=== PATIENT | male | born 1980 | race Caucasian/White ===

== ENCOUNTER 2017-12-09 10:43 | Observation (INO) ==
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
--- NOTE | 2017-12-09 12:55 | US ---
EXAM: Bilateral carotid artery Doppler History: Dizziness. Technique: Multiple sonographic images through the bilateral internal carotid arteries were obtained . Color duplex Doppler was used to interrogate vascular flow. Findings: The right ICA peak systolic velocity is within normal limits measuring 90 cm/sec. The right ICA/cca PSV ratio is normal at 0.90. The right vertebral artery is patent and demonstrates antegrade flow. Kan scale images demonstrate no significant plaque buildup within the right internal carotid artery. The left ICA peak systolic velocity is within normal limits measuring 90 cm/sec. The left ICA/cca PSV ratio is normal at 1.1. The left vertebral artery is patent and demonstrates antegrade flow. Kan scale images demonstrate no significant plaque buildup within the left internal carotid artery Impression: No significant hemodynamic stenosis of the bilateral internal carotid arteries
--- NOTE | 2017-12-09 13:08 | CT ---
EXAM: CTA of the chest. History: Chest pain. Technique: Multiplanar CT images through the thorax were obtained following administration of IV con trast. MIP images and 3-D reconstructions were also provided. Findings: Heart size is normal. No pericardial effusion. Great vessels are unremarkable. No thora cic lymphadenopathy. Subtle diffuse centrilobular micronodules and bronchial wall thickening. No co nsolidated pneumonia. No pleural fluid and no pneumothorax. No suspicious lung masses or lung nodul es. Within the visualized upper abdomen, no acute findings. No acute osseous abnormalities. No pulmonary embolism. Impression: 1. No pulmonary embolism. 2. Subtle diffuse centrilobular micronodules compatible with infectious/inflammatory process such as hypersensitivity pneumonitis or [id number].
[2017-12-09] MEDS ORDERED: SODIUM CHLORIDE 1,000 ML IV SCH (14:00)
[2017-12-09 15:25] VITALS: BMI 26.9
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
[2017-12-09] MEDS ORDERED: THIAMINE 100 MG in SODIUM CHLORIDE 50 ML IV SCH (17:00)
[2017-12-09] MEDS ORDERED: MOTRIN PO PRN (17:15)
[2017-12-09] MEDS ORDERED: TYLENOL PO PRN (17:15)
[2017-12-09] MEDS ORDERED: MORPHINE 4 MG/ML SYRINGE IVP PRN (17:16)
[2017-12-09] MEDS: NICODERM 21 MG TD SCH (18:47)
[2017-12-09] MEDS: CARAFATE PO SCH ×2 (18:47→22:11)
[2017-12-09] MEDS: LOVENOX SUBCUT SCH (18:51)
[2017-12-10] MEDS: CARAFATE PO SCH ×2 (05:43→11:11)
[2017-12-10] MEDS: NICODERM 21 MG TD SCH (08:53)
[2017-12-10] MEDS: LOVENOX SUBCUT SCH (08:53)
[2017-12-10 09:24] VITALS: BP 130/75; TEMP 98.5
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
--- NOTE | 2017-12-11 11:48 | STRESSECHO ---
Date of Test: 12/10/17 Reason for Exam: CHEST PAIN, PALPITATIONS Ordering Physician: DR. MARCO WILSON--HOSPITALIST Current Medications: NO HOME MEDICATIONS Resting EKG: SINUS RHYTHM/ NO ACUTE CHANGES Target Heart Rate: 155/183 S-T SEGMENT STAGE MPH/GRADE HEART RATE BPM BLOOD PRESSURE MMHG RHYTHM +/- ELEVATION DEPRESSION SYMPTOMS,COMMENTS At Rest 57 146/88 SR X NONE 1 1.7/10% 96 146/78 SR X NONE 2 2.5/12% 120 176/72 SR X NONE 3 3.4/14% 150 SR X NONE 4 4.2/16% 5 5.0/18% Immediately after 164 SR X FATIGUE Durations of Exercise: 9:18 Maximum Heart Rate Reached: 164 Reason for Termination: FATIGUE 4 MINUTES POST EXERCISE: HR 75 BPM, BP 130/80 MMHG, NO COMMENTS INTERPRETATION: 98% OXYGEN SATURATION WITH EXERCISE ON ROOM AIR METS 11.0 1. NO EVIDENCE OF ISCHEMIA BY ST-T WAVE CHANGES 2. NO CHEST PAIN OR CHEST DISCOMFORT 3. BLOOD PRESSURE RESPONSE: HYPERTENSION AT REST AND WITH EXERCISE 4. NO ARRHYTHMIAS 5. GOOD EXERCISE TOLERANCE NORMAL LEFT VENTRICULAR CONTRACTILITY--RESTING AND POST EXERCISE MTDD
--- NOTE | 2017-12-11 11:51 | ECHOSTRESS ---
Date of Exam: 12/10/17 Ordering Physician: DR. BRIAN WILSON--HOSPITALIST Reason for Echo: CHEST PAIN, PALPITATIONS, STRESS TEST --NO ISCHEMIA M-Mode Normal Adult Results LV Dimensions Normal Adult Results AoV Opening excursions >1.6 LVEDD-base- 3.5-5.8 Ao root dimensions 2.0-3.7 LVESD-base- 3.1-4.6 L. Atrium dimensions 1.9-3.8 Post. Wall thickness 0.8-1.1 IV septum (thickness) 0.7-1.2 Post. Wall excursion 0.72-1.3 Septal motion Systolic motion R. Ventricular cavity 1.5-2.0 LVEF 60% Paradoxical septal wall motion 2-D: NORMAL LEFT VENTRICULAR CONTRACTILITY--RESTING AND POST EXERCISE M-MODE: MV: AV: TV: PV: CHAMBER SIZE: WALL MOTION: NORMAL LEFT VENTRICULAR CONTRACTILITY---RESTING AND POST EXERCISE PERICARDIUM: INTERPRETATION: 1. NORMAL LEFT VENTRICULAR CONTRACTILITY---RESTING AND POST EXERCISE MTDD
== END 2017-12-10 13:42 | disposition home or self-care (01) ==
LOC: ED 10:43 → MEDSURG B 13:38
PROVIDERS: ADMIT Family Medicine; ATTEND Family Medicine
DX: R07.9 Chest pain, unspecified (principal); R07.1 Chest pain on breathing; R20.8 Other disturbances of skin sensation; R53.1 Weakness; R00.2 Palpitations; M75.22 Bicipital tendinitis, left shoulder; R94.6 Abnormal results of thyroid function studies; M54.2 Cervicalgia; F12.90 Cannabis use, unspecified, uncomplicated; F17.210 Nicotine dependence, cigarettes, uncomplicated
CPT/HCPCS: 36415; 80053; 80306; 81001; 82550; 82553; 82607; 84439; 84443; 84480; 84484; 85025; 93005; 93010; 99284